=== PATIENT | male | born 1935 | race Asian ===

== ENCOUNTER 2017-05-16 20:01 | Inpatient (IN) | payer MEDICARE, MEDICAID ==
[~2017-05-16] VITALS: Ht 162.6 cm; Wt 80.3 kg
[~2017-05-16 20:01] MED LIST: ASPI81TA43 PO; ATOR10TA84 PO; GLIP10 PO; HYDR-4061 PO; HYDR-4173 PO; HYDR12.530 PO
[2017-05-16] MEDS ORDERED: FURO40 PO (20:11)
[2017-05-16] MEDS ORDERED: SIMV-260 PO (20:11)
[2017-05-16] MEDS ORDERED: BACL10TA PO (20:11)
[2017-05-16] MEDS ORDERED: GABA-529 PO (20:11)
[2017-05-16] MEDS ORDERED: ALLO100T PO (20:11)
[2017-05-16 20:40] LABS: BASOPHILS % (AUTO) 0.5 % (0.0-2.0); EOSINOPHILS % (AUTO) 4.6 % (1.0-6.0); HEMATOCRIT 37.1 % (41-53); HEMOGLOBIN 12.5 g/dL (13.5-17.5); LYMPHOCYTES # (AUTO) 0.9 K/uL (1.0-4.8); LYMPHOCYTES % (AUTO) 12.4 % (22.0-44.0); MEAN CORPUSCULAR HEMOGLOBIN 32.5 pg (26.0-34.0); MEAN CORPUSCULAR HGB CONC 33.7 G/dL (31.0-37.0); MEAN CORPUSCULAR VOLUME 97 fL (80-100); MONOCYTES # (AUTO) 0.9 K/uL (0.1-1.0); MONOCYTES % (AUTO) 11.7 % (2.0-9.0); NEUTROPHILS # (AUTO) 5.2 K/uL (1.8-7.7); NEUTROPHILS % (AUTO) 70.8 % (40.0-70.0); PLATELET COUNT (AUTO) 162 K/uL (150-450); RED BLOOD CELL COUNT(AUTO) 3.84 MIL/uL (4.50-5.90); RED CELL DISTRIBUTION WIDTH 14.5 % (11.5-14.5); WHITE BLOOD COUNT (AUTO) 7.3 K/uL (4.5-11.0)
[2017-05-16 20:52] LABS: ANION GAP 5 mmol/L (8-16); CALCIUM, TOTAL 8.7 mg/dL (8.8-10.5); CARBON DIOXIDE 30 mmol/L (22-29); CHLORIDE 98 mmol/L (98-107); CREATININE 1.85 mg/dL (0.60-1.30); GLOMERULAR FILTR. RATE CALC 35 mL/min (>60); POTASSIUM 3.7 mmol/L (3.5-5.1); SODIUM SERUM 133 mmol/L (136-145); UREA NITROGEN, BLOOD 38 mg/dL (7-18)
[2017-05-16 20:54] LABS: INR 1.1 (0.9-1.1); PROTHROMBIN TIME 11.4 SEC (9.4-11.6)
[2017-05-16 21:16] LABS: B-TYPE NATRIURETIC PEPTIDE 417 pg/mL (0-100)
[2017-05-16 21:17] LABS: ALANINE AMINOTRANSFERASE 10 U/L (12-78); ALBUMIN 3.2 g/dL (3.4-5.0); ASPARTATE AMINOTRANSFERASE 15 U/L (15-37); BILIRUBIN,TOTAL 0.7 mg/dL (0.1-1.0); CREATINE KINASE MB 1.4 ng/mL (0-5); CREATINE KINASE, TOTAL 102 U/L (39-308); TOTAL PROTEIN, SERUM 6.9 g/dL (6.4-8.2)
[2017-05-16] MEDS ORDERED: NITROGLYCERIN 2% (1 GM=INCH) PACKET TP ONE (21:45)
[2017-05-16] MEDS ORDERED: ASPIRIN 81 MG CHEWABLE TABLET PO ONE (21:45)
[2017-05-16] MEDS ORDERED: FUROSEMIDE 40 MG/4 ML VIAL IVP ONE (21:45)
[2017-05-16] MEDS ORDERED: FUROSEMIDE 20 MG/2 ML VIAL IVP ONE (21:45)
[2017-05-16 22:28] LABS: ABG A-A DIFF O2 18.3 mmHg (10-20.0); ABG BASE EXCESS 4.9 mmol/L (-2.0-3.0); ABG HCO3 28.2 mmol/L (22.0-26.0); ABG OXYHEMOGLOBIN 93.2 % (94.0-100.0); ABG PCO2 45 mmHg (35-45); ABG PH 7.427 (7.35-7.450)
[2017-05-16 22:37] LABS: APPEARANCE,URINE CLEAR (CLEAR); GLUCOSE, URINE (UA) 500 mg/dL (NEGATIVE); KETONES,URINE NEGATIVE (NEGATIVE); LEUKOCYTE ESTERASE ,URINE NEGATIVE (NEGATIVE); OCCULT BLOOD,URINE NEGATIVE (NEGATIVE); PH,URINE 5.5 (5.0-8.0); PROTEIN,URINE NEGATIVE (NEGATIVE)
[2017-05-16 22:38] LABS: ADD UA MICROSCOPIC YES
[2017-05-16] MEDS ORDERED: ACETAMINOPHEN 325 MG TABLET PO PRN (22:45)
[2017-05-16] MEDS ORDERED: 0.9% SODIUM CHLORIDE 10 ML SYRINGE IVP PRN (22:45)
[2017-05-16 22:49] LABS: SQUAMOUS EPITHELIAL CELL,UR Rare /LPF (None Seen)
[2017-05-16 22:50] LABS: RBC,URINE None Seen /HPF (0-2); WBC,URINE 0-2 /HPF (0-5)
[2017-05-16 23:58] VITALS: BP 146/63
[2017-05-17] VITALS (9 sets, daily range): BP systolic 112–148; BP diastolic 58–76
[2017-05-17] MEDS ORDERED: 0.9% SODIUM CHLORIDE 10 ML SYRINGE IVP PRN (01:45)
[2017-05-17] MEDS ORDERED: ONDANSETRON HCL 4 MG/2 ML VIAL IVP PRN (01:45)
[2017-05-17] MEDS ORDERED: BACLOFEN 10 MG TABLET PO PRN (01:45)
[2017-05-17] MEDS ORDERED: OxyCODONE HCL/ACETAMINOPHEN 5-325 MG TABLET PO PRN ×2 (01:45)
[2017-05-17] MEDS ORDERED: ACETAMINOPHEN 325 MG TABLET PO PRN (01:45)
[2017-05-17] MEDS ORDERED: MAGNESIUM HYDROXIDE SUSPENSION 30 ML UDCUP PO PRN (01:45)
[2017-05-17 06:25] LABS: BASOPHILS # (AUTO) 0.05 K/uL (0.00-0.20); BASOPHILS % (AUTO) 0.6 % (0.0-2.0); EOSINOPHILS # (AUTO) 0.33 K/uL (0.00-0.70); EOSINOPHILS % (AUTO) 4.27 % (1.0-6.0); HEMATOCRIT 37.8 % (41-53); HEMOGLOBIN 12.8 g/dL (13.5-17.5); LYMPHOCYTES # (AUTO) 1.2 K/uL (1.0-4.8); MEAN CORPUSCULAR HEMOGLOBIN 32.6 pg (26.0-34.0); MEAN CORPUSCULAR HGB CONC 33.8 G/dL (31.0-37.0); MEAN CORPUSCULAR VOLUME 96 fL (80-100); MONOCYTES # (AUTO) 1.1 K/uL (0.1-1.0); MONOCYTES % (AUTO) 13.7 % (2.0-9.0); NEUTROPHILS % (AUTO) 65.4 % (40.0-70.0); PLATELET COUNT (AUTO) 161 K/uL (150-450); RED BLOOD CELL COUNT(AUTO) 3.92 MIL/uL (4.50-5.90); RED CELL DISTRIBUTION WIDTH 14.9 % (11.5-14.5); WHITE BLOOD COUNT (AUTO) 7.6 K/uL (4.5-11.0)
[2017-05-17 06:42] LABS: BILIRUBIN,TOTAL 0.7 mg/dL (0.1-1.0); CREATININE 1.62 mg/dL (0.60-1.30); POTASSIUM 3.4 mmol/L (3.5-5.1); TOTAL PROTEIN, SERUM 6.8 g/dL (6.4-8.2)
[2017-05-17] MEDS ORDERED: LEVALBUTEROL HCL 0.63 MG/3 ML NEB SOLUTION NEB PRN (08:00)
[2017-05-17] MEDS: PANTOPRAZOLE SODIUM 40 MG/VIAL IVP SCH (08:36)
[2017-05-17] MEDS: GABAPENTIN 100 MG CAPSULE PO SCH ×3 (08:36→20:49)
[2017-05-17] MEDS: ASPIRIN 81 MG EC TABLET PO SCH (08:36)
[2017-05-17] MEDS: FUROSEMIDE 40 MG/4 ML VIAL IVP SCH (08:36)
[2017-05-17] MEDS: HydrALAZINE HCL 25 MG TABLET PO SCH ×3 (08:37→20:39)
[2017-05-17] MEDS: ALLOPURINOL 100 MG TABLET PO SCH (08:37)
[2017-05-17] MEDS: DOCUSATE SODIUM 100 MG CAPSULE PO SCH ×2 (08:38→20:41)
[2017-05-17] MEDS: GuaiFENesin/D-METHORPHAN [SUGAR-FREE] 200-20MG/10 ML SYRUP UDCUP PO PRN (09:06)
[2017-05-17] MEDS ORDERED: IPRATROPIUM BROMIDE 0.5 MG/2.5 ML NEB SOLUTION NEB PRN (09:15)
[2017-05-17] MEDS ORDERED: ALBUTEROL SULFATE 2.5 MG/0.5 ML NEB SOLUTION NEB PRN (09:15)
[2017-05-17] MEDS ORDERED: POTASSIUM CHLORIDE 20 MEQ ER TABLET PO ONE (10:00)
[2017-05-17] MEDS ORDERED: DEXTROSE 50%-WATER 25 GM/50 ML SYRINGE IVP PRN (12:45)
[2017-05-17] MEDS: INSULIN ASPART 100 UNITS/ML SQ PRN ×3 (12:52→20:52)
[2017-05-17] MEDS: ALBUTEROL SULFATE 2.5 MG/0.5 ML NEB SOLUTION NEB SCH ×2 (14:04→20:00)
[2017-05-17] MEDS: IPRATROPIUM BROMIDE 0.5 MG/2.5 ML NEB SOLUTION NEB SCH ×2 (14:04→20:00)
[2017-05-17] MEDS: MethylPREDNISolone SOD SUCC 40 MG/ML VIAL IVP SCH (17:43)
[2017-05-17] MEDS: OXYGEN THERAPY IH SCH (20:00)
[2017-05-17] MEDS ORDERED: SIMVASTATIN 20 MG TABLET PO SCH (21:00)
[2017-05-18] MEDS: MethylPREDNISolone SOD SUCC 40 MG/ML VIAL IVP SCH ×3 (00:58→17:05)
[2017-05-18 01:02] LABS: GLUCOSE COMMENT 1 Received Meds; GLUCOSE,POINT OF CARE 170 MG/DL (70-110)
[2017-05-18] MEDS: GuaiFENesin/D-METHORPHAN [SUGAR-FREE] 200-20MG/10 ML SYRUP UDCUP PO PRN (01:06)
[2017-05-18 01:07] LABS: GLUCOSE COMMENT 1 Received Meds; GLUCOSE,POINT OF CARE 228 MG/DL (70-110)
[2017-05-18 04:46] VITALS: BP 151/79
[2017-05-18] MEDS: INSULIN ASPART 100 UNITS/ML SQ PRN ×3 (06:14→18:05)
[2017-05-18 06:38] LABS: BASOPHILS % (AUTO) 0.1 % (0.0-2.0); EOSINOPHILS % (AUTO) 0 % (1.0-6.0); HEMATOCRIT 41.6 % (41-53); HEMOGLOBIN 13.9 g/dL (13.5-17.5); MEAN CORPUSCULAR HEMOGLOBIN 32.6 pg (26.0-34.0); MEAN CORPUSCULAR HGB CONC 33.5 G/dL (31.0-37.0); MEAN CORPUSCULAR VOLUME 97 fL (80-100); MONOCYTES # (AUTO) 0.1 K/uL (0.1-1.0); MONOCYTES % (AUTO) 1.2 % (2.0-9.0); NEUTROPHILS # (AUTO) 5.9 K/uL (1.8-7.7); NEUTROPHILS % (AUTO) 84.7 % (40.0-70.0); PLATELET COUNT (AUTO) 193 K/uL (150-450); RED BLOOD CELL COUNT(AUTO) 4.28 MIL/uL (4.50-5.90); RED CELL DISTRIBUTION WIDTH 14.7 % (11.5-14.5); WHITE BLOOD COUNT (AUTO) 6.9 K/uL (4.5-11.0)
[2017-05-18 07:30] LABS: BILIRUBIN,TOTAL 0.6 mg/dL (0.1-1.0); CALCIUM, TOTAL 9.2 mg/dL (8.8-10.5); CREATININE 1.73 mg/dL (0.60-1.30); MAGNESIUM 1.9 mg/dL (1.80-2.40); POTASSIUM 4.1 mmol/L (3.5-5.1); TOTAL PROTEIN, SERUM 7.4 g/dL (6.4-8.2)
[2017-05-18 07:33] LABS: GLUCOSE COMMENT 1 Received Meds; GLUCOSE,POINT OF CARE 223 MG/DL (70-110)
[2017-05-18] MEDS: IPRATROPIUM BROMIDE 0.5 MG/2.5 ML NEB SOLUTION NEB SCH ×3 (08:00→14:00)
[2017-05-18] MEDS: ALBUTEROL SULFATE 2.5 MG/0.5 ML NEB SOLUTION NEB SCH ×3 (08:00→14:00)
[2017-05-18] MEDS: OXYGEN THERAPY IH SCH (08:00)
[2017-05-18] MEDS: FUROSEMIDE 40 MG/4 ML VIAL IVP SCH (08:13)
[2017-05-18] MEDS: PANTOPRAZOLE SODIUM 40 MG/VIAL IVP SCH (08:13)
[2017-05-18] MEDS: DOCUSATE SODIUM 100 MG CAPSULE PO SCH (08:13)
[2017-05-18] MEDS: GABAPENTIN 100 MG CAPSULE PO SCH ×2 (08:14→17:05)
[2017-05-18] MEDS: HydrALAZINE HCL 25 MG TABLET PO SCH (08:14)
[2017-05-18] MEDS: ASPIRIN 81 MG EC TABLET PO SCH (08:14)
[2017-05-18] MEDS: ALLOPURINOL 100 MG TABLET PO SCH (08:16)
[2017-05-18 08:46] VITALS: BP 133/71
[2017-05-18 11:25] VITALS: BP 146/73
[2017-05-18] MEDS ORDERED: HydrALAZINE HCL 50 MG TABLET PO SCH (16:00)
[2017-05-18 16:06] VITALS: BP 125/65
[2017-05-18] MEDS ORDERED: HYDR-2924 PO (16:17)
[2017-05-19 05:08] LABS: GLUCOSE COMMENT 1 Received Meds; GLUCOSE,POINT OF CARE 327 MG/DL (70-110)
[2017-05-19 05:18] LABS: GLUCOSE COMMENT 1 Received Meds; GLUCOSE,POINT OF CARE 265 MG/DL (70-110)
[2017-05-19 05:19] LABS: GLUCOSE COMMENT 1 Received Meds; GLUCOSE,POINT OF CARE 278 MG/DL (70-110)
[2017-05-19] MEDS ORDERED: FUROSEMIDE 40 MG TABLET PO SCH (09:00)
== END 2017-05-18 18:20 | disposition home or self-care (01) | DRG 291 ==
LOC: EMS 20:02 → 5S 22:37
PROVIDERS: ADMIT Internal Medicine; ATTEND Internal Medicine
DX: I13.0 Hypertensive heart and chronic kidney disease with heart failure and stage 1 through stage 4 chronic kidney disease, or unspecified chronic kidney disease (principal); E43 Unspecified severe protein-calorie malnutrition; N17.9 Acute kidney failure, unspecified; E11.21 Type 2 diabetes mellitus with diabetic nephropathy; I49.5 Sick sinus syndrome; E11.22 Type 2 diabetes mellitus with diabetic chronic kidney disease; I50.31 Acute diastolic (congestive) heart failure; E87.1 Hypo-osmolality and hyponatremia; J44.1 Chronic obstructive pulmonary disease with (acute) exacerbation; N18.3 Chronic kidney disease, stage 3 (moderate); E55.9 Vitamin D deficiency, unspecified; E78.00 Pure hypercholesterolemia, unspecified; E78.5 Hyperlipidemia, unspecified; E87.6 Hypokalemia; M10.9 Gout, unspecified; Z83.3 Family history of diabetes mellitus; Z90.49 Acquired absence of other specified parts of digestive tract; Z82.49 Family history of ischemic heart disease and other diseases of the circulatory system; Z68.30 Body mass index [BMI] 30.0-30.9, adult; Z79.82 Long term (current) use of aspirin; Z79.899 Other long term (current) drug therapy
CPT/HCPCS: 82805; 82962; 83605; 83735; 84132; 87040; 93005; 93306; 96374; 99285; C9113; J1940; J2920

== ENCOUNTER 2017-05-28 19:32 | Emergency (ER) | payer MEDICARE, MEDICAID ==
[~2017-05-28] VITALS: Ht 162.6 cm; Wt 83.5 kg
[~2017-05-28 19:32] MED LIST changes: +ALLO100T PO; -ATOR10TA84 PO; +BACL10TA PO; +FURO40 PO; +GABA-529 PO; +HYDR-2924 PO; -HYDR-4061 PO; -HYDR-4173 PO; -HYDR12.530 PO; +SIMV-260 PO
[2017-05-28 20:48] LABS: BASOPHILS # (AUTO) 0.04 K/uL (0.00-0.20); BASOPHILS % (AUTO) 0.4 % (0.0-2.0); EOSINOPHILS # (AUTO) 0.37 K/uL (0.00-0.70); EOSINOPHILS % (AUTO) 3.71 % (1.0-6.0); HEMATOCRIT 39.5 % (41-53); HEMOGLOBIN 13.2 g/dL (13.5-17.5); LYMPHOCYTES # (AUTO) 1.3 K/uL (1.0-4.8); LYMPHOCYTES % (AUTO) 13.2 % (22.0-44.0); MEAN CORPUSCULAR HEMOGLOBIN 32.3 pg (26.0-34.0); MEAN CORPUSCULAR HGB CONC 33.3 G/dL (31.0-37.0); MEAN CORPUSCULAR VOLUME 97 fL (80-100); MONOCYTES # (AUTO) 0.7 K/uL (0.1-1.0); NEUTROPHILS # (AUTO) 7.5 K/uL (1.8-7.7); NEUTROPHILS % (AUTO) 75.7 % (40.0-70.0); PLATELET COUNT (AUTO) 220 K/uL (150-450); RED BLOOD CELL COUNT(AUTO) 4.08 MIL/uL (4.50-5.90); RED CELL DISTRIBUTION WIDTH 14.5 % (11.5-14.5); WHITE BLOOD COUNT (AUTO) 9.9 K/uL (4.5-11.0)
[2017-05-28 21:00] LABS: INR 1.1 (0.9-1.1); PROTHROMBIN TIME 11.1 SEC (9.4-11.6)
[2017-05-28 21:05] LABS: B-TYPE NATRIURETIC PEPTIDE 167 pg/mL (0-100)
[2017-05-28 21:11] LABS: ANION GAP 4 mmol/L (8-16); CALCIUM, TOTAL 8.8 mg/dL (8.8-10.5); CARBON DIOXIDE 34 mmol/L (22-29); CHLORIDE 95 mmol/L (98-107); CREATININE 2.07 mg/dL (0.60-1.30); GLOMERULAR FILTR. RATE CALC 31 mL/min (>60); POTASSIUM 4.1 mmol/L (3.5-5.1); SODIUM SERUM 133 mmol/L (136-145); UREA NITROGEN, BLOOD 58 mg/dL (7-18)
[2017-05-28 21:12] LABS: ADD UA MICROSCOPIC YES; APPEARANCE,URINE CLEAR (CLEAR); GLUCOSE, URINE (UA) 250 mg/dL (NEGATIVE); KETONES,URINE NEGATIVE (NEGATIVE); LEUKOCYTE ESTERASE ,URINE NEGATIVE (NEGATIVE); OCCULT BLOOD,URINE NEGATIVE (NEGATIVE); PROTEIN,URINE NEGATIVE (NEGATIVE)
[2017-05-28 21:18] LABS: ALANINE AMINOTRANSFERASE 12 U/L (12-78); ALBUMIN 3.1 g/dL (3.4-5.0); ASPARTATE AMINOTRANSFERASE 18 U/L (15-37); BILIRUBIN,TOTAL 0.4 mg/dL (0.1-1.0); CREATINE KINASE, TOTAL 60 U/L (39-308); TOTAL PROTEIN, SERUM 6.6 g/dL (6.4-8.2)
[2017-05-28 21:21] LABS: RBC,URINE None Seen /HPF (0-2); WBC,URINE 0-2 /HPF (0-5)
[2017-05-28 22:56] VITALS: BP 149/65
[2017-05-28] MEDS ORDERED: FentaNYL CITRATE-PF 100 MCG/2 ML VIAL IVP ONE (23:15)
[2017-05-29 09:05] LABS: GLUCOSE,POINT OF CARE 243 MG/DL (70-110)
== END 2017-05-28 23:37 | disposition home or self-care (01) ==
LOC: EMS 19:33
DX: R51 Headache (principal); I11.0 Hypertensive heart disease with heart failure; I50.9 Heart failure, unspecified; E78.00 Pure hypercholesterolemia, unspecified; E11.9 Type 2 diabetes mellitus without complications
CPT/HCPCS: 36415; 70450; 71010; 80053; 81001; 82550; 82962; 83880; 84484; 85025; 85610; 85730; 93005; 96374; 99285; J3010

== ENCOUNTER 2017-08-02 01:49 | Inpatient (IN) | payer MEDICARE, MEDICAID ==
[2017-08-02] VITALS (7 sets, daily range): BP systolic 108–144; BP diastolic 51–80
[~2017-08-02] VITALS: Ht 165.1 cm; Wt 82.9 kg
[2017-08-02 02:02] LABS: GLUCOSE,POINT OF CARE 191 MG/DL (70-110)
[2017-08-02 02:41] LABS: BASOPHILS % (AUTO) 1.3 % (0.0-2.0); EOSINOPHILS % (AUTO) 3.9 % (1.0-6.0); HEMOGLOBIN 12.7 g/dL (13.5-17.5); LYMPHOCYTES % (AUTO) 16.6 % (22.0-44.0); MEAN CORPUSCULAR HEMOGLOBIN 32.3 pg (26.0-34.0); MEAN CORPUSCULAR HGB CONC 33.4 G/dL (31.0-37.0); MEAN CORPUSCULAR VOLUME 97 fL (80-100); MONOCYTES # (AUTO) 0.5 K/uL (0.1-1.0); MONOCYTES % (AUTO) 7.7 % (2.0-9.0); NEUTROPHILS # (AUTO) 4.5 K/uL (1.8-7.7); NEUTROPHILS % (AUTO) 70.5 % (40.0-70.0); PLATELET COUNT (AUTO) 175 K/uL (150-450); RED BLOOD CELL COUNT(AUTO) 3.93 MIL/uL (4.50-5.90); RED CELL DISTRIBUTION WIDTH 15.4 % (11.5-14.5); WHITE BLOOD COUNT (AUTO) 6.3 K/uL (4.5-11.0)
[2017-08-02 03:30] LABS: CREATININE 1.81 mg/dL (0.60-1.30); POTASSIUM 4.8 mmol/L (3.5-5.1)
[2017-08-02 03:36] LABS: ALBUMIN 3.4 g/dL (3.4-5.0); BILIRUBIN,TOTAL 0.6 mg/dL (0.1-1.0); TOTAL PROTEIN, SERUM 6.3 g/dL (6.4-8.2)
[2017-08-02] MEDS ORDERED: ONDANSETRON HCL 4 MG/2 ML VIAL IVP PRN (04:15)
[2017-08-02] MEDS ORDERED: ACETAMINOPHEN 325 MG TABLET PO PRN (04:15)
[2017-08-02] MEDS ORDERED: FUROSEMIDE 40 MG/4 ML VIAL IVP ONE (04:15)
[2017-08-02] MEDS ORDERED: 0.9% SODIUM CHLORIDE 10 ML SYRINGE IVP PRN (04:15)
[2017-08-02] MEDS ORDERED: INFLUENZA VIRUS VACCINE QVS 2017-18 (3YR+)/PF 60 MCG/0.5 ML SYRINGE IM ONE (06:30)
[2017-08-02] MEDS ORDERED: -PHARMACY VACCINE NOTE- MISC ONE ×2 (06:30)
[2017-08-02] MEDS ORDERED: MAGNESIUM OXIDE 400 MG TABLET PO PRN (17:15)
[2017-08-02] MEDS ORDERED: MAGNESIUM SULFATE 4 GM/WATER 100 ML IV PRN (17:15)
[2017-08-02] MEDS ORDERED: MAGNESIUM SULFATE 2 GM in DEXTROSE 5%-WATER 50 ML IV PRN (17:15)
[2017-08-02] MEDS ORDERED: BACLOFEN 10 MG TABLET PO PRN (17:30)
[2017-08-02] MEDS ORDERED: DEXTROSE 50%-WATER 25 GM/50 ML SYRINGE IVP PRN (17:30)
[2017-08-02] MEDS: FUROSEMIDE 20 MG/2 ML VIAL IVP SCH (17:46)
[2017-08-02] MEDS: INSULIN ASPART 100 UNITS/ML SQ PRN (17:59)
[2017-08-02] MEDS: GlipiZIDE 10 MG TABLET PO SCH (18:36)
[2017-08-02] MEDS: HydrALAZINE HCL 50 MG TABLET PO SCH (20:57)
[2017-08-02] MEDS: SIMVASTATIN 20 MG TABLET PO SCH (20:57)
[2017-08-03] VITALS (7 sets, daily range): BP systolic 99–139; BP diastolic 44–72
[2017-08-03] MEDS: INSULIN ASPART 100 UNITS/ML SQ PRN ×4 (05:47→20:51)
[2017-08-03] MEDS: FUROSEMIDE 20 MG/2 ML VIAL IVP SCH ×2 (05:50→20:23)
[2017-08-03 05:57] LABS: BASOPHILS % (AUTO) 1.2 % (0.0-2.0); EOSINOPHILS % (AUTO) 1.9 % (1.0-6.0); HEMATOCRIT 38.9 % (41-53); HEMOGLOBIN 13.1 g/dL (13.5-17.5); LYMPHOCYTES # (AUTO) 1.1 K/uL (1.0-4.8); MEAN CORPUSCULAR HEMOGLOBIN 32.5 pg (26.0-34.0); MEAN CORPUSCULAR HGB CONC 33.8 G/dL (31.0-37.0); MEAN CORPUSCULAR VOLUME 96 fL (80-100); MONOCYTES # (AUTO) 0.5 K/uL (0.1-1.0); MONOCYTES % (AUTO) 5.5 % (2.0-9.0); NEUTROPHILS # (AUTO) 7.2 K/uL (1.8-7.7); NEUTROPHILS % (AUTO) 79.4 % (40.0-70.0); PLATELET COUNT (AUTO) 195 K/uL (150-450); RED BLOOD CELL COUNT(AUTO) 4.03 MIL/uL (4.50-5.90); RED CELL DISTRIBUTION WIDTH 15.7 % (11.5-14.5); WHITE BLOOD COUNT (AUTO) 9.1 K/uL (4.5-11.0)
[2017-08-03 06:22] LABS: ALBUMIN 3.2 g/dL (3.4-5.0); BILIRUBIN,TOTAL 0.5 mg/dL (0.1-1.0); CREATININE 1.78 mg/dL (0.60-1.30); MAGNESIUM 2.1 mg/dL (1.80-2.40); POTASSIUM 4.3 mmol/L (3.5-5.1); TOTAL PROTEIN, SERUM 6.3 g/dL (6.4-8.2)
[2017-08-03] MEDS: GlipiZIDE 10 MG TABLET PO SCH ×2 (06:30→17:49)
[2017-08-03] MEDS: ALLOPURINOL 100 MG TABLET PO SCH (08:32)
[2017-08-03] MEDS: ASPIRIN 81 MG EC TABLET PO SCH (08:32)
[2017-08-03] MEDS: HydrALAZINE HCL 50 MG TABLET PO SCH ×2 (08:32→15:49)
[2017-08-03 09:37] LABS: GLUCOSE,POINT OF CARE 103 MG/DL (70-110)
[2017-08-03] MEDS: HEPARIN SODIUM,PORCINE 5,000 UNITS/ML VIAL SQ SCH (16:00)
[2017-08-03] MEDS ORDERED: INFLUENZA VIRUS VACCINE QVS 2017-18 (3YR+)/PF 60 MCG/0.5 ML SYRINGE IM ONE (19:30)
[2017-08-03] MEDS: SIMVASTATIN 20 MG TABLET PO SCH (20:23)
[2017-08-04] MEDS: HydrALAZINE HCL 50 MG TABLET PO SCH ×4 (00:31→21:27)
[2017-08-04] MEDS: HEPARIN SODIUM,PORCINE 5,000 UNITS/ML VIAL SQ SCH ×3 (00:32→15:55)
[2017-08-04] MEDS ORDERED: FINA5TAB41 PO (01:05)
[2017-08-04 04:27] VITALS: BP 128/71
[2017-08-04] MEDS ORDERED: CARV25 PO (04:56)
[2017-08-04] MEDS ORDERED: PIOG45TA4 PO (04:58)
[2017-08-04] MEDS ORDERED: HYDR25TA84 PO (04:59)
[2017-08-04] MEDS: INSULIN ASPART 100 UNITS/ML SQ PRN ×3 (05:53→18:19)
[2017-08-04] MEDS ORDERED: SIMV-260 PO (05:55)
[2017-08-04] MEDS: GlipiZIDE 10 MG TABLET PO SCH ×3 (06:30→18:17)
[2017-08-04 06:31] LABS: BASOPHILS # (AUTO) 0.02 K/uL (0.00-0.20); BASOPHILS % (AUTO) 0.2 % (0.0-2.0); EOSINOPHILS # (AUTO) 0.34 K/uL (0.00-0.70); EOSINOPHILS % (AUTO) 4.36 % (1.0-6.0); HEMATOCRIT 40.3 % (41-53); LYMPHOCYTES # (AUTO) 0.6 K/uL (1.0-4.8); LYMPHOCYTES % (AUTO) 8.1 % (22.0-44.0); MEAN CORPUSCULAR HEMOGLOBIN 31.6 pg (26.0-34.0); MEAN CORPUSCULAR HGB CONC 32.3 G/dL (31.0-37.0); MEAN CORPUSCULAR VOLUME 98 fL (80-100); MONOCYTES # (AUTO) 0.5 K/uL (0.1-1.0); MONOCYTES % (AUTO) 6.9 % (2.0-9.0); NEUTROPHILS # (AUTO) 6.2 K/uL (1.8-7.7); NEUTROPHILS % (AUTO) 80.5 % (40.0-70.0); PLATELET COUNT (AUTO) 158 K/uL (150-450); RED BLOOD CELL COUNT(AUTO) 4.11 MIL/uL (4.50-5.90); RED CELL DISTRIBUTION WIDTH 15.6 % (11.5-14.5); WHITE BLOOD COUNT (AUTO) 7.7 K/uL (4.5-11.0)
[2017-08-04 06:54] LABS: HEMOGLOBIN A1C 8.4 % (4.5-6.2)
[2017-08-04 06:58] LABS: CALCIUM, TOTAL 9.1 mg/dL (8.8-10.5); CHOL/HDL RATIO 2.8 (4.2-7.3); CREATININE 1.85 mg/dL (0.60-1.30); POTASSIUM 3.7 mmol/L (3.5-5.1)
[2017-08-04 07:22] VITALS: BP 133/90
[2017-08-04] MEDS: ALLOPURINOL 100 MG TABLET PO SCH (08:28)
[2017-08-04] MEDS: ASPIRIN 81 MG EC TABLET PO SCH (08:28)
[2017-08-04] MEDS: FUROSEMIDE 20 MG/2 ML VIAL IVP SCH (08:28)
[2017-08-04] MEDS: PANTOPRAZOLE SODIUM 40 MG DR TABLET PO SCH (08:28)
[2017-08-04 11:24] VITALS: BP 140/62
[2017-08-04 15:25] VITALS: BP 123/53
[2017-08-04 16:58] LABS: GLUCOSE COMMENT 1 Received Meds; GLUCOSE,POINT OF CARE 229 MG/DL (70-110)
[2017-08-04 17:35] LABS: ABG A-A DIFF O2 6.9 mmHg (10-20.0); ABG BASE EXCESS 9.7 mmol/L (-2.0-3.0); ABG OXYHEMOGLOBIN 94.2 % (94.0-100.0); ABG PCO2 51 mmHg (35-45); ABG PH 7.442 (7.35-7.450); TEMPERATURE, FAHRENHEIT, BG 98.6 FAHREN (96.0-98.6)
[2017-08-04 17:36] LABS: ALLEN TEST, BLOOD GAS Positive
[2017-08-04 19:49] VITALS: BP 149/72
[2017-08-04] MEDS: SIMVASTATIN 20 MG TABLET PO SCH (20:49)
[2017-08-04] MEDS: TAMSULOSIN HCL 0.4 MG CAPSULE PO SCH (20:49)
[2017-08-04 22:48] LABS: GLUCOSE COMMENT 1 Received Meds; GLUCOSE,POINT OF CARE 174 MG/DL (70-110)
[2017-08-04 22:48] LABS: GLUCOSE,POINT OF CARE 112 MG/DL (70-110)
[2017-08-04 22:48] LABS: GLUCOSE,POINT OF CARE 111 MG/DL (70-110)
[2017-08-05] VITALS (7 sets, daily range): BP systolic 120–146; BP diastolic 55–76
[2017-08-05] MEDS: HEPARIN SODIUM,PORCINE 5,000 UNITS/ML VIAL SQ SCH ×3 (00:09→16:38)
[2017-08-05 05:47] LABS: GLUCOSE,POINT OF CARE 145 MG/DL (70-110)
[2017-08-05 05:47] LABS: GLUCOSE COMMENT 1 Received Meds; GLUCOSE,POINT OF CARE 67 MG/DL (70-110)
[2017-08-05 05:48] LABS: GLUCOSE,POINT OF CARE 108 MG/DL (70-110)
[2017-08-05 05:52] LABS: GLUCOSE COMMENT 1 Received Meds; GLUCOSE,POINT OF CARE 217 MG/DL (70-110)
[2017-08-05 05:52] LABS: GLUCOSE COMMENT 1 Received Meds; GLUCOSE,POINT OF CARE 233 MG/DL (70-110)
[2017-08-05] MEDS: GlipiZIDE 10 MG TABLET PO SCH ×2 (06:18→17:37)
[2017-08-05] MEDS: HydrALAZINE HCL 50 MG TABLET PO SCH ×3 (08:05→20:39)
[2017-08-05] MEDS: ASPIRIN 81 MG EC TABLET PO SCH (08:05)
[2017-08-05] MEDS: ALLOPURINOL 100 MG TABLET PO SCH (08:05)
[2017-08-05] MEDS: PANTOPRAZOLE SODIUM 40 MG DR TABLET PO SCH (08:05)
[2017-08-05] MEDS: INSULIN ASPART 100 UNITS/ML SQ PRN ×2 (12:01→22:01)
[2017-08-05 17:23] LABS: GLUCOSE COMMENT 1 Received Meds; GLUCOSE,POINT OF CARE 246 MG/DL (70-110)
[2017-08-05] MEDS: SIMVASTATIN 20 MG TABLET PO SCH (20:39)
[2017-08-05] MEDS: TAMSULOSIN HCL 0.4 MG CAPSULE PO SCH (20:39)
[2017-08-06] MEDS: HEPARIN SODIUM,PORCINE 5,000 UNITS/ML VIAL SQ SCH ×3 (00:10→16:42)
[2017-08-06 04:34] VITALS: BP 139/58
[2017-08-06] MEDS: GlipiZIDE 10 MG TABLET PO SCH ×2 (06:41→17:30)
[2017-08-06 07:07] VITALS: BP 139/76
[2017-08-06] MEDS: HydrALAZINE HCL 50 MG TABLET PO SCH ×3 (08:34→20:30)
[2017-08-06] MEDS: PANTOPRAZOLE SODIUM 40 MG DR TABLET PO SCH (08:34)
[2017-08-06] MEDS: ALLOPURINOL 100 MG TABLET PO SCH (08:34)
[2017-08-06] MEDS: ASPIRIN 81 MG EC TABLET PO SCH (08:34)
[2017-08-06 11:00] VITALS: BP 123/70
[2017-08-06 15:25] VITALS: BP 143/94
[2017-08-06 18:07] LABS: GLUCOSE COMMENT 1 Received Meds; GLUCOSE,POINT OF CARE 281 MG/DL (70-110)
[2017-08-06 18:07] LABS: GLUCOSE,POINT OF CARE 101 MG/DL (70-110)
[2017-08-06 18:08] LABS: GLUCOSE,POINT OF CARE 81 MG/DL (70-110)
[2017-08-06 19:15] VITALS: BP 132/64
[2017-08-06] MEDS: TAMSULOSIN HCL 0.4 MG CAPSULE PO SCH (20:30)
[2017-08-06] MEDS: SIMVASTATIN 20 MG TABLET PO SCH (20:30)
[2017-08-06] MEDS: INSULIN ASPART 100 UNITS/ML SQ PRN (20:31)
[2017-08-06 21:47] LABS: GLUCOSE,POINT OF CARE 173 MG/DL (70-110)
[2017-08-06 23:47] VITALS: BP 128/69
[2017-08-07] MEDS: HEPARIN SODIUM,PORCINE 5,000 UNITS/ML VIAL SQ SCH ×2 (01:35→09:07)
[2017-08-07 04:25] VITALS: BP 138/64
[2017-08-07 05:52] LABS: GLUCOSE COMMENT 1 Received Meds; GLUCOSE,POINT OF CARE 179 MG/DL (70-110)
[2017-08-07] MEDS: GlipiZIDE 10 MG TABLET PO SCH (06:09)
[2017-08-07 07:32] LABS: GLUCOSE COMMENT 1 Received Meds; GLUCOSE,POINT OF CARE 165 MG/DL (70-110)
[2017-08-07 07:33] LABS: GLUCOSE COMMENT 1 Received Meds; GLUCOSE,POINT OF CARE 238 MG/DL (70-110)
[2017-08-07 07:33] LABS: GLUCOSE,POINT OF CARE 138 MG/DL (70-110)
[2017-08-07 07:40] VITALS: BP 152/74
[2017-08-07] MEDS: ALLOPURINOL 100 MG TABLET PO SCH (09:06)
[2017-08-07] MEDS: HydrALAZINE HCL 50 MG TABLET PO SCH ×2 (09:06→16:35)
[2017-08-07] MEDS: ASPIRIN 81 MG EC TABLET PO SCH (09:06)
[2017-08-07] MEDS: PANTOPRAZOLE SODIUM 40 MG DR TABLET PO SCH (09:06)
[2017-08-07 09:37] LABS: GLUCOSE,POINT OF CARE 105 MG/DL (70-110)
[2017-08-07 11:30] VITALS: BP 132/67
[2017-08-07] MEDS: INSULIN ASPART 100 UNITS/ML SQ PRN (11:41)
[2017-08-07 15:27] VITALS: BP 152/90
[2017-08-08 11:59] LABS: GLUCOSE,POINT OF CARE 113 MG/DL (70-110)
[2017-08-08 20:42] LABS: GLUCOSE,POINT OF CARE 147 MG/DL (70-110)
== END 2017-08-07 17:00 | disposition home or self-care (01) | DRG 291 ==
LOC: EMS 01:50 → 5S 04:34
PROVIDERS: ADMIT Internal Medicine; ATTEND Internal Medicine
DX: I13.0 Hypertensive heart and chronic kidney disease with heart failure and stage 1 through stage 4 chronic kidney disease, or unspecified chronic kidney disease (principal); I50.23 Acute on chronic systolic (congestive) heart failure; N17.9 Acute kidney failure, unspecified; E11.22 Type 2 diabetes mellitus with diabetic chronic kidney disease; G20 Parkinson's disease; I48.91 Unspecified atrial fibrillation; E78.5 Hyperlipidemia, unspecified; F03.90 Unspecified dementia, unspecified severity, without behavioral disturbance, psychotic disturbance, mood disturbance, and anxiety; M10.9 Gout, unspecified; N18.3 Chronic kidney disease, stage 3 (moderate); N40.0 Benign prostatic hyperplasia without lower urinary tract symptoms; Z90.49 Acquired absence of other specified parts of digestive tract; Z82.49 Family history of ischemic heart disease and other diseases of the circulatory system; Z79.82 Long term (current) use of aspirin; Z79.899 Other long term (current) drug therapy; Z28.21 Immunization not carried out because of patient refusal
CPT/HCPCS: 82805; 82962; 83036; 83735; 93005; 93306; 97110; 97116; 97162; 97165; 99285; J1644; J1940

== ENCOUNTER 2017-09-03 15:29 | Inpatient (IN) | payer MEDICARE, MEDICAID ==
[~2017-09-03] VITALS: Ht 162.6 cm; Wt 82.4 kg
[~2017-09-03 15:29] MED LIST changes: -BACL10TA PO; +CARV25 PO; +FINA5TAB41 PO; -GABA-529 PO; -GLIP10 PO; -HYDR-2924 PO; +HYDR25TA84 PO; +PIOG45TA4 PO
[2017-09-03 16:32] LABS: GLUCOSE,POINT OF CARE 202 MG/DL (70-110)
[2017-09-03 19:05] LABS: BASOPHILS # (AUTO) 0.03 K/uL (0.00-0.20); BASOPHILS % (AUTO) 0.5 % (0.0-2.0); EOSINOPHILS # (AUTO) 0.14 K/uL (0.00-0.70); HEMATOCRIT 41.5 % (41-53); LYMPHOCYTES # (AUTO) 0.8 K/uL (1.0-4.8); LYMPHOCYTES % (AUTO) 15.1 % (22.0-44.0); MEAN CORPUSCULAR HEMOGLOBIN 32.2 pg (26.0-34.0); MEAN CORPUSCULAR HGB CONC 33.7 G/dL (31.0-37.0); MEAN CORPUSCULAR VOLUME 96 fL (80-100); MONOCYTES # (AUTO) 0.4 K/uL (0.1-1.0); MONOCYTES % (AUTO) 7.5 % (2.0-9.0); NEUTROPHILS # (AUTO) 4.1 K/uL (1.8-7.7); NEUTROPHILS % (AUTO) 74.5 % (40.0-70.0); PLATELET COUNT (AUTO) 181 K/uL (150-450); RED BLOOD CELL COUNT(AUTO) 4.35 MIL/uL (4.50-5.90); RED CELL DISTRIBUTION WIDTH 15.5 % (11.5-14.5)
[2017-09-03 19:29] LABS: ALBUMIN 3.7 g/dL (3.4-5.0); BILIRUBIN,TOTAL 0.8 mg/dL (0.1-1.0); CALCIUM, TOTAL 8.8 mg/dL (8.8-10.5); CREATININE 1.55 mg/dL (0.60-1.30); POTASSIUM 4.1 mmol/L (3.5-5.1); TOTAL PROTEIN, SERUM 7.1 g/dL (6.4-8.2)
[2017-09-03] MEDS ORDERED: FUROSEMIDE 40 MG/4 ML VIAL IVP ONE (20:00)
[2017-09-03] MEDS ORDERED: NITROGLYCERIN 2% (1 GM=INCH) PACKET TP ONE (20:00)
[2017-09-03] MEDS ORDERED: ASPIRIN 81 MG CHEWABLE TABLET PO ONE (20:00)
[2017-09-03] MEDS ORDERED: ACETAMINOPHEN 325 MG TABLET PO PRN (21:00)
[2017-09-03] MEDS ORDERED: 0.9% SODIUM CHLORIDE 10 ML SYRINGE IVP PRN (21:00)
[2017-09-03] MEDS ORDERED: DEXTROSE 50%-WATER 25 GM/50 ML SYRINGE IVP PRN (21:00)
[2017-09-03] MEDS ORDERED: INSULIN ASPART 100 UNITS/ML SQ PRN (21:00)
[2017-09-03 21:52] LABS: APPEARANCE,URINE CLEAR (CLEAR); BILIRUBIN,URINE NEGATIVE (NEGATIVE); GLUCOSE, URINE (UA) 250 mg/dL (NEGATIVE); KETONES,URINE NEGATIVE (NEGATIVE); LEUKOCYTE ESTERASE ,URINE NEGATIVE (NEGATIVE); NITRATE,URINE NEGATIVE (NEGATIVE); OCCULT BLOOD,URINE NEGATIVE (NEGATIVE); PROTEIN,URINE NEGATIVE (NEGATIVE); UROBILINOGEN,URINE 0.2 mg/dL (<=1.0)
[2017-09-03 22:07] LABS: BACTERIA,URINE None Seen /HPF (None Seen); RBC,URINE None Seen /HPF (0-2); SQUAMOUS EPITHELIAL CELL,UR Few /LPF (None Seen); WBC,URINE 0-2 /HPF (0-5)
[2017-09-04] MEDS: IPRATROPIUM BROMIDE 0.5 MG/2.5 ML NEB SOLUTION NEB SCH ×2 (01:50→08:21)
[2017-09-04] MEDS: ALBUTEROL SULFATE 2.5 MG/0.5 ML NEB SOLUTION NEB SCH ×2 (01:50→08:21)
[2017-09-04 07:48] LABS: GLUCOSE,POINT OF CARE 154 MG/DL (70-110)
[2017-09-04 07:49] LABS: BASOPHILS % (AUTO) 1.3 % (0.0-2.0); EOSINOPHILS % (AUTO) 3.9 % (1.0-6.0); HEMATOCRIT 43.2 % (41-53); HEMOGLOBIN 14.4 g/dL (13.5-17.5); LYMPHOCYTES % (AUTO) 15.8 % (22.0-44.0); MEAN CORPUSCULAR HEMOGLOBIN 32.4 pg (26.0-34.0); MEAN CORPUSCULAR HGB CONC 33.4 G/dL (31.0-37.0); MEAN CORPUSCULAR VOLUME 97 fL (80-100); MONOCYTES # (AUTO) 0.9 K/uL (0.1-1.0); MONOCYTES % (AUTO) 14.2 % (2.0-9.0); NEUTROPHILS # (AUTO) 4.1 K/uL (1.8-7.7); NEUTROPHILS % (AUTO) 64.8 % (40.0-70.0); PLATELET COUNT (AUTO) 179 K/uL (150-450); RED BLOOD CELL COUNT(AUTO) 4.45 MIL/uL (4.50-5.90); RED CELL DISTRIBUTION WIDTH 15.7 % (11.5-14.5)
[2017-09-04 08:04] LABS: ALBUMIN 3.4 g/dL (3.4-5.0); BILIRUBIN,TOTAL 0.6 mg/dL (0.1-1.0); CALCIUM, TOTAL 8.8 mg/dL (8.8-10.5); CREATININE 1.41 mg/dL (0.60-1.30); POTASSIUM 3.8 mmol/L (3.5-5.1); TOTAL PROTEIN, SERUM 6.5 g/dL (6.4-8.2)
[2017-09-04 08:17] LABS: INR 1.1 (0.9-1.1); PROTHROMBIN TIME 11.4 SEC (9.4-11.6)
[2017-09-04 08:42] VITALS: BP 146/87
[2017-09-04] MEDS ORDERED: INFLUENZA VIRUS VACCINE QVS 2017-18 (3YR+)/PF 60 MCG/0.5 ML SYRINGE IM ONE (10:30)
[2017-09-04] MEDS: ASPIRIN 81 MG EC TABLET PO SCH (11:04)
[2017-09-04] MEDS: FINASTERIDE 5 MG TABLET PO SCH (11:04)
[2017-09-04 11:19] VITALS: BP 155/90
[2017-09-04] MEDS: PIOGLITAZONE HCL 45 MG TABLET PO SCH (12:16)
[2017-09-04 15:25] VITALS: BP 170/93
[2017-09-04] MEDS ORDERED: PROMETHAZINE HCL/CODEINE 6.25-10MG/5ML SYRUP UDCUP PO PRN (15:45)
[2017-09-04] MEDS: SACUBITRIL/VALSARTAN 24-26 MG TABLET PO SCH ×2 (17:02→23:37)
[2017-09-04] MEDS: HydrALAZINE HCL 25 MG TABLET PO SCH ×3 (17:02→23:36)
[2017-09-04] MEDS: ALLOPURINOL 100 MG TABLET PO SCH (17:03)
[2017-09-04] MEDS ORDERED: DEXTROSE 50%-WATER 25 GM/50 ML SYRINGE IVP PRN (18:00)
[2017-09-04] MEDS: INSULIN ASPART 100 UNITS/ML SQ PRN (18:07)
[2017-09-04 19:16] LABS: SODIUM,URINE RANDOM 27 mmol/l (20-110)
[2017-09-04 19:27] LABS: OSMOLALITY,URINE 392 mOS/kg (50-1200)
[2017-09-04 19:31] VITALS: BP 125/59
[2017-09-04] MEDS: OXYGEN THERAPY IH SCH (20:56)
[2017-09-04] MEDS: FUROSEMIDE 40 MG/4 ML VIAL IVP SCH (20:57)
[2017-09-04 23:33] VITALS: BP 122/60
[2017-09-04] MEDS: SIMVASTATIN 20 MG TABLET PO SCH (23:36)
[2017-09-04] MEDS: CARVEDILOL 25 MG TABLET PO SCH (23:38)
[2017-09-05] VITALS (13 sets, daily range): BP systolic 72–142; BP diastolic 38–81
[2017-09-05 06:43] LABS: GLUCOMETER DEV NAME(LOC) 5S 2N; GLUCOSE,POINT OF CARE 73 MG/DL (70-110)
[2017-09-05 06:43] LABS: GLUCOMETER DEV NAME(LOC) 5S 2N; GLUCOSE,POINT OF CARE 277 MG/DL (70-110)
[2017-09-05 06:56] LABS: BASOPHILS % (AUTO) 1.1 % (0.0-2.0); EOSINOPHILS % (AUTO) 4.2 % (1.0-6.0); HEMATOCRIT 43.2 % (41-53); HEMOGLOBIN 14.2 g/dL (13.5-17.5); LYMPHOCYTES # (AUTO) 0.7 K/uL (1.0-4.8); LYMPHOCYTES % (AUTO) 10.1 % (22.0-44.0); MEAN CORPUSCULAR HEMOGLOBIN 32.2 pg (26.0-34.0); MEAN CORPUSCULAR VOLUME 98 fL (80-100); MONOCYTES # (AUTO) 0.6 K/uL (0.1-1.0); MONOCYTES % (AUTO) 8.1 % (2.0-9.0); NEUTROPHILS # (AUTO) 5.5 K/uL (1.8-7.7); NEUTROPHILS % (AUTO) 76.5 % (40.0-70.0); PLATELET COUNT (AUTO) 188 K/uL (150-450); RED BLOOD CELL COUNT(AUTO) 4.43 MIL/uL (4.50-5.90); RED CELL DISTRIBUTION WIDTH 15.5 % (11.5-14.5)
[2017-09-05 08:29] LABS: ALBUMIN 3.1 g/dL (3.4-5.0); BILIRUBIN,TOTAL 0.5 mg/dL (0.1-1.0); CALCIUM, TOTAL 8.7 mg/dL (8.8-10.5); CHOL/HDL RATIO 2.5 (4.2-7.3); CREATININE 1.67 mg/dL (0.60-1.30); PHOSPHORUS 4.6 mg/dL (2.5-4.9); THYROID STIMULATING HORMONE 1.24 uIU/mL (0.36-3.74); TOTAL PROTEIN, SERUM 6.1 g/dL (6.4-8.2)
[2017-09-05] MEDS ORDERED: FUROSEMIDE 40 MG TABLET PO SCH (09:00)
[2017-09-05] MEDS: FINASTERIDE 5 MG TABLET PO SCH (09:03)
[2017-09-05] MEDS: FUROSEMIDE 40 MG/4 ML VIAL IVP SCH ×2 (09:03→20:29)
[2017-09-05] MEDS: OXYGEN THERAPY IH SCH ×2 (09:03→20:29)
[2017-09-05] MEDS: ASPIRIN 81 MG EC TABLET PO SCH (09:03)
[2017-09-05] MEDS: PIOGLITAZONE HCL 45 MG TABLET PO SCH (09:04)
[2017-09-05] MEDS: CARVEDILOL 25 MG TABLET PO SCH ×2 (09:04→22:28)
[2017-09-05] MEDS: SACUBITRIL/VALSARTAN 24-26 MG TABLET PO SCH ×2 (09:05→23:03)
[2017-09-05] MEDS: INSULIN ASPART 100 UNITS/ML SQ PRN ×3 (11:48→20:36)
[2017-09-05] MEDS: HydrALAZINE HCL 25 MG TABLET PO SCH ×2 (16:00→23:03)
[2017-09-05] MEDS: ALLOPURINOL 100 MG TABLET PO SCH (17:04)
[2017-09-05] MEDS: SIMVASTATIN 20 MG TABLET PO SCH (20:29)
[2017-09-05] MEDS ORDERED: SODIUM CHLORIDE 0.9% 250 ML IV ONE ×2 (23:12→23:30)
[2017-09-05 23:42] LABS: GLUCOMETER DEV NAME(LOC) 5S 2N; GLUCOSE,POINT OF CARE 275 MG/DL (70-110)
[2017-09-05 23:42] LABS: GLUCOMETER DEV NAME(LOC) 5S 2N; GLUCOSE,POINT OF CARE 191 MG/DL (70-110)
[2017-09-06] VITALS (13 sets, daily range): BP systolic 77–144; BP diastolic 37–70
[2017-09-06 06:45] LABS: CALCIUM, TOTAL 8.7 mg/dL (8.8-10.5); CHOL/HDL RATIO 2.5 (4.2-7.3); CREATININE 1.89 mg/dL (0.60-1.30); PHOSPHORUS 5.3 mg/dL (2.5-4.9); POTASSIUM 3.9 mmol/L (3.5-5.1)
[2017-09-06 07:54] LABS: GLUCOMETER DEV NAME(LOC) 5S 1L; GLUCOSE,POINT OF CARE 134 MG/DL (70-110)
[2017-09-06 07:54] LABS: GLUCOMETER DEV NAME(LOC) 5S 1L; GLUCOSE,POINT OF CARE 216 MG/DL (70-110)
[2017-09-06 07:54] LABS: GLUCOMETER DEV NAME(LOC) 5S 1L; GLUCOSE,POINT OF CARE 131 MG/DL (70-110)
[2017-09-06 07:58] LABS: GLUCOMETER DEV NAME(LOC) 5S 1L; GLUCOSE,POINT OF CARE 38 MG/DL (70-110)
[2017-09-06 07:58] LABS: GLUCOMETER DEV NAME(LOC) 5S 1L; GLUCOSE,POINT OF CARE 172 MG/DL (70-110)
[2017-09-06] MEDS: OXYGEN THERAPY IH SCH ×2 (08:58→20:00)
[2017-09-06] MEDS: FUROSEMIDE 40 MG/4 ML VIAL IVP SCH (08:58)
[2017-09-06] MEDS: ASPIRIN 81 MG EC TABLET PO SCH (08:59)
[2017-09-06] MEDS: FINASTERIDE 5 MG TABLET PO SCH (08:59)
[2017-09-06] MEDS: HydrALAZINE HCL 25 MG TABLET PO SCH ×3 (08:59→21:28)
[2017-09-06] MEDS: PIOGLITAZONE HCL 45 MG TABLET PO SCH (08:59)
[2017-09-06] MEDS: CARVEDILOL 25 MG TABLET PO SCH ×2 (09:00→21:28)
[2017-09-06] MEDS: SACUBITRIL/VALSARTAN 24-26 MG TABLET PO SCH ×2 (09:00→21:28)
[2017-09-06 11:38] LABS: GLUCOMETER DEV NAME(LOC) 5S 2N; GLUCOSE,POINT OF CARE 157 MG/DL (70-110)
[2017-09-06] MEDS: INSULIN ASPART 100 UNITS/ML SQ PRN ×3 (12:24→22:16)
[2017-09-06] MEDS: ALLOPURINOL 100 MG TABLET PO SCH (17:59)
[2017-09-06 18:18] LABS: GLUCOMETER DEV NAME(LOC) 5S 2N; GLUCOSE,POINT OF CARE 193 MG/DL (70-110)
[2017-09-06] MEDS: SIMVASTATIN 20 MG TABLET PO SCH (21:28)
[2017-09-07] VITALS (8 sets, daily range): BP systolic 105–147; BP diastolic 56–79
[2017-09-07 05:15] LABS: CALCIUM, TOTAL 8.7 mg/dL (8.8-10.5); CREATININE 1.99 mg/dL (0.60-1.30); MAGNESIUM 1.9 mg/dL (1.80-2.40); PHOSPHORUS 3.7 mg/dL (2.5-4.9); POTASSIUM 4.8 mmol/L (3.5-5.1)
[2017-09-07] MEDS: INSULIN ASPART 100 UNITS/ML SQ PRN ×4 (06:26→21:56)
[2017-09-07] MEDS: FINASTERIDE 5 MG TABLET PO SCH (08:36)
[2017-09-07] MEDS: OXYGEN THERAPY IH SCH ×2 (08:36→20:07)
[2017-09-07] MEDS: ASPIRIN 81 MG EC TABLET PO SCH (08:37)
[2017-09-07] MEDS: SACUBITRIL/VALSARTAN 24-26 MG TABLET PO SCH ×2 (08:37→20:06)
[2017-09-07] MEDS: HydrALAZINE HCL 25 MG TABLET PO SCH ×3 (08:37→21:56)
[2017-09-07] MEDS: PIOGLITAZONE HCL 45 MG TABLET PO SCH (08:37)
[2017-09-07] MEDS: CARVEDILOL 25 MG TABLET PO SCH ×2 (08:37→20:06)
[2017-09-07] MEDS: ALLOPURINOL 100 MG TABLET PO SCH (16:19)
[2017-09-07] MEDS: SIMVASTATIN 20 MG TABLET PO SCH (20:06)
[2017-09-08 04:35] VITALS: BP 143/68
[2017-09-08] MEDS: INSULIN ASPART 100 UNITS/ML SQ PRN (06:31)
[2017-09-08 07:31] LABS: CALCIUM, TOTAL 9.2 mg/dL (8.8-10.5); CREATININE 1.76 mg/dL (0.60-1.30); MAGNESIUM 2.2 mg/dL (1.80-2.40); POTASSIUM 4.4 mmol/L (3.5-5.1)
[2017-09-08 07:35] VITALS: BP 118/68
[2017-09-08] MEDS ORDERED: SACU1TAB PO (07:42)
[2017-09-08] MEDS: PIOGLITAZONE HCL 45 MG TABLET PO SCH (08:39)
[2017-09-08] MEDS: OXYGEN THERAPY IH SCH (08:39)
[2017-09-08] MEDS: FINASTERIDE 5 MG TABLET PO SCH (08:39)
[2017-09-08] MEDS: SACUBITRIL/VALSARTAN 24-26 MG TABLET PO SCH (08:39)
[2017-09-08] MEDS: CARVEDILOL 25 MG TABLET PO SCH (08:39)
[2017-09-08] MEDS: ASPIRIN 81 MG EC TABLET PO SCH (08:39)
[2017-09-08] MEDS: HydrALAZINE HCL 25 MG TABLET PO SCH (08:39)
[2017-09-08 17:33] LABS: GLUCOMETER DEV NAME(LOC) 5S 1L; GLUCOSE,POINT OF CARE 252 MG/DL (70-110)
[2017-09-09 18:57] LABS: GLUCOMETER DEV NAME(LOC) 5S 2N; GLUCOSE,POINT OF CARE 164 MG/DL (70-110)
[2017-09-09 18:58] LABS: GLUCOMETER DEV NAME(LOC) 5S 2N; GLUCOSE,POINT OF CARE 190 MG/DL (70-110)
[2017-09-10 01:18] LABS: GLUCOMETER DEV NAME(LOC) 5N 1M; GLUCOSE,POINT OF CARE 175 MG/DL (70-110)
[2017-09-10 01:18] LABS: GLUCOMETER DEV NAME(LOC) 5N 1M; GLUCOSE,POINT OF CARE 169 MG/DL (70-110)
[2017-09-10 01:18] LABS: GLUCOMETER DEV NAME(LOC) 5N 1M; GLUCOSE,POINT OF CARE 271 MG/DL (70-110)
[2017-09-10 01:18] LABS: GLUCOMETER DEV NAME(LOC) 5N 1M; GLUCOSE,POINT OF CARE 177 MG/DL (70-110)
== END 2017-09-08 09:50 | disposition home health service (06) | DRG 280 ==
LOC: EMS 15:31 → 5S 09-04 04:46
PROVIDERS: ADMIT Family Medicine; ATTEND Family Medicine
PROC: 3E0234Z Introduction of Serum, Toxoid and Vaccine into Muscle, Percutaneous Approach (ICD-10-PCS; principal; 2017-09-05)
DX: I13.0 Hypertensive heart and chronic kidney disease with heart failure and stage 1 through stage 4 chronic kidney disease, or unspecified chronic kidney disease (principal); I21.4 Non-ST elevation (NSTEMI) myocardial infarction; I50.23 Acute on chronic systolic (congestive) heart failure; N17.9 Acute kidney failure, unspecified; I95.9 Hypotension, unspecified; E87.3 Alkalosis; E11.22 Type 2 diabetes mellitus with diabetic chronic kidney disease; E11.65 Type 2 diabetes mellitus with hyperglycemia; E87.1 Hypo-osmolality and hyponatremia; G20 Parkinson's disease; F03.90 Unspecified dementia, unspecified severity, without behavioral disturbance, psychotic disturbance, mood disturbance, and anxiety; N18.3 Chronic kidney disease, stage 3 (moderate); M10.9 Gout, unspecified; E78.5 Hyperlipidemia, unspecified; E55.9 Vitamin D deficiency, unspecified; E78.00 Pure hypercholesterolemia, unspecified; I48.91 Unspecified atrial fibrillation; Z79.82 Long term (current) use of aspirin; Z23 Encounter for immunization; Z79.899 Other long term (current) drug therapy; Z95.0 Presence of cardiac pacemaker; Z90.49 Acquired absence of other specified parts of digestive tract
CPT/HCPCS: 82533; 82962; 83735; 83930; 83935; 84100; 84300; 84443; 87081; 90471; 93005; 93306; 94640; 96372; 96374; 97163; 97166; 99285; J1815; J1940; J7050

== ENCOUNTER 2017-11-25 22:32 | Emergency (ER) | payer OTHER ==
[~2017-11-25] VITALS: Ht 162.6 cm; Wt 83.6 kg
[~2017-11-25 22:32] MED LIST changes: -FURO40 PO; +SACU1TAB PO
[2017-11-25 22:47] LABS: GLUCOSE,POINT OF CARE 170 MG/DL (70-110)
[2017-11-25] MEDS ORDERED: FURO40 PO (22:49)
[2017-11-25 23:42] LABS: BASOPHILS % (AUTO) 1.2 % (0.0-2.0); HEMATOCRIT 36.3 % (41-53); HEMOGLOBIN 12.1 g/dL (13.5-17.5); LYMPHOCYTES # (AUTO) 1.2 K/uL (1.0-4.8); LYMPHOCYTES % (AUTO) 21.3 % (22.0-44.0); MEAN CORPUSCULAR HEMOGLOBIN 31.7 pg (26.0-34.0); MEAN CORPUSCULAR HGB CONC 33.3 G/dL (31.0-37.0); MEAN CORPUSCULAR VOLUME 95 fL (80-100); MONOCYTES # (AUTO) 0.6 K/uL (0.1-1.0); MONOCYTES % (AUTO) 10.1 % (2.0-9.0); NEUTROPHILS # (AUTO) 3.5 K/uL (1.8-7.7); NEUTROPHILS % (AUTO) 62.4 % (40.0-70.0); PLATELET COUNT (AUTO) 175 K/uL (150-450); RED BLOOD CELL COUNT(AUTO) 3.81 MIL/uL (4.50-5.90); RED CELL DISTRIBUTION WIDTH 15.7 % (11.5-14.5)
[2017-11-25 23:53] LABS: PROTHROMBIN TIME 10.7 SEC (9.4-11.6)
[2017-11-26 00:03] LABS: B-TYPE NATRIURETIC PEPTIDE 680 pg/mL (0-100)
[2017-11-26 00:06] LABS: ANION GAP 5 mmol/L (8-16); CARBON DIOXIDE 33 mmol/L (22-29); CHLORIDE 100 mmol/L (98-107); CREATININE 1.63 mg/dL (0.60-1.30); GLOMERULAR FILTR. RATE CALC 41 mL/min (>60); GLUCOSE,RANDOM 184 mg/dL (70-110); POTASSIUM 4.2 mmol/L (3.5-5.1); SODIUM SERUM 138 mmol/L (136-145)
[2017-11-26 00:07] LABS: ALANINE AMINOTRANSFERASE 42 U/L (12-78); ALBUMIN 3.1 g/dL (3.4-5.0); ALKALINE PHOSPHATASE 83 U/L (46-116); ASPARTATE AMINOTRANSFERASE 74 U/L (15-37); BILIRUBIN,TOTAL 0.4 mg/dL (0.1-1.0); CALCIUM, TOTAL 8.6 mg/dL (8.8-10.5); CREATINE KINASE, TOTAL 102 U/L (39-308); TOTAL PROTEIN, SERUM 6.3 g/dL (6.4-8.2)
[2017-11-26 00:18] LABS: UREA NITROGEN, BLOOD 29 mg/dL (7-18)
[2017-11-26] MEDS ORDERED: NITROGLYCERIN 2% (1 GM=INCH) PACKET TP ONE (01:15)
[2017-11-26] MEDS ORDERED: BUMETANIDE 0.25 MG/ML 4 ML VIAL IVP ONE (01:15)
[2017-11-26 03:12] VITALS: BP 143/68
== END 2017-11-26 03:13 | disposition home or self-care (01) ==
LOC: EMS 22:34
DX: I11.0 Hypertensive heart disease with heart failure (principal); I50.9 Heart failure, unspecified; E78.00 Pure hypercholesterolemia, unspecified; E11.9 Type 2 diabetes mellitus without complications
CPT/HCPCS: 71045; 80053; 82550; 82553; 82962; 83880; 84484; 85025; 85610; 85730; 93005; 96374; 99285; J3490

== ENCOUNTER 2018-03-12 21:33 | Inpatient (IN) | payer OTHER ==
[~2018-03-12] VITALS: Ht 162.6 cm; Wt 77.4 kg
[~2018-03-12 21:33] MED LIST changes: +AMLO-511 PO; +ENAL2.5 PO; +FURO40 PO; -HYDR25TA84 PO; +IPRA4AER IH; -SACU1TAB PO; +TAMS0.4C32 PO
[2018-03-12] MEDS ORDERED: ACETAMINOPHEN 325 MG TABLET ONE (21:39)
[2018-03-12] MEDS ORDERED: ACETAMINOPHEN 325 MG TABLET PO ONE (21:45)
[2018-03-12 21:53] LABS: GLUCOSE,POINT OF CARE 192 MG/DL (70-110)
[2018-03-12] MEDS ORDERED: 0.9% SODIUM CHLORIDE 10 ML SYRINGE IVP PRN (22:30)
[2018-03-12 22:59] LABS: BASOPHILS % (AUTO) 0.2 % (0.0-2.0); EOSINOPHILS % (AUTO) 0.1 % (1.0-6.0); HEMATOCRIT 32.4 % (41-53); LYMPHOCYTES # (AUTO) 0.3 K/uL (1.0-4.8); LYMPHOCYTES % (AUTO) 1.9 % (22.0-44.0); MEAN CORPUSCULAR HEMOGLOBIN 31.3 pg (26.0-34.0); MEAN CORPUSCULAR VOLUME 92 fL (80-100); MONOCYTES # (AUTO) 1.1 K/uL (0.1-1.0); MONOCYTES % (AUTO) 6.9 % (2.0-9.0); NEUTROPHILS # (AUTO) 14.3 K/uL (1.8-7.7); PLATELET COUNT (AUTO) 247 K/uL (150-450); RED BLOOD CELL COUNT(AUTO) 3.51 MIL/uL (4.50-5.90); RED CELL DISTRIBUTION WIDTH 15.1 % (11.5-14.5)
[2018-03-12 23:01] LABS: NEUTROPHILS % (AUTO) 90.9 % (40.0-70.0)
[2018-03-12 23:10] LABS: CALCIUM, TOTAL 8.4 mg/dL (8.8-10.5); CREATININE 2.37 mg/dL (0.60-1.30); INR 1.1 (0.9-1.1); POTASSIUM 3.3 mmol/L (3.5-5.1); PROTHROMBIN TIME 11.6 SEC (9.4-11.6)
[2018-03-12 23:15] LABS: ALBUMIN 2.7 g/dL (3.4-5.0); BILIRUBIN,TOTAL 0.6 mg/dL (0.1-1.0); TOTAL PROTEIN, SERUM 6.4 g/dL (6.4-8.2)
[2018-03-12 23:22] LABS: LACTIC ACID 1.2 mmol/L (0.4-2.0)
[2018-03-12 23:40] LABS: APPEARANCE,URINE CLOUDY (CLEAR); BILIRUBIN,URINE NEGATIVE (NEGATIVE); GLUCOSE, URINE (UA) NEGATIVE (NEGATIVE); KETONES,URINE NEGATIVE (NEGATIVE); LEUKOCYTE ESTERASE ,URINE SMALL (NEGATIVE); NITRATE,URINE NEGATIVE (NEGATIVE); OCCULT BLOOD,URINE NEGATIVE (NEGATIVE); PROTEIN,URINE POS 1+ (NEGATIVE); UROBILINOGEN,URINE 0.2 mg/dL (<=1.0)
[2018-03-12] MEDS ORDERED: SODIUM CHLORIDE 0.9% 1,000 ML IV ONE (23:45)
[2018-03-12] MEDS ORDERED: CefTRIAXone SODIUM 1 GM in DEXTROSE 5%-WATER 10 ML IV ONE (23:45)
[2018-03-13] VITALS (7 sets, daily range): BP systolic 104–136; BP diastolic 50–63
[2018-03-13] MEDS ORDERED: AZITHROMYCIN 500 MG/NS 250 ML IV ONE (00:15)
[2018-03-13] MEDS ORDERED: ONDANSETRON HCL 4 MG/2 ML VIAL IVP PRN (00:15)
[2018-03-13] MEDS ORDERED: ACETAMINOPHEN 325 MG TABLET PO PRN ×2 (00:15→09:45)
[2018-03-13 00:29] LABS: BACTERIA,URINE Few /HPF (None Seen); RBC,URINE 0-2 /HPF (0-2)
[2018-03-13 00:30] LABS: SQUAMOUS EPITHELIAL CELL,UR Rare /LPF (None Seen)
[2018-03-13] MEDS ORDERED: ALBUTEROL SULFATE 2.5 MG/0.5 ML NEB SOLUTION NEB PRN (09:45)
[2018-03-13] MEDS ORDERED: BISACODYL 10 MG RECTAL RECTAL SUPPOSITORY PR PRN (09:45)
[2018-03-13] MEDS ORDERED: POTASSIUM CHLORIDE 20 MEQ ER TABLET PO ONE (10:00)
[2018-03-13] MEDS ORDERED: SODIUM CHLORIDE 0.9% 100 ML ONE (18:01)
[2018-03-13] MEDS: PIPERACILLIN SODIUM/TAZOBACTAM 2.25 GM in DEXTROSE 5%-WATER 50 ML IV SCH (18:22)
[2018-03-13] MEDS: HEPARIN SODIUM,PORCINE 5,000 UNITS/ML VIAL SQ SCH (20:59)
[2018-03-13] MEDS: FUROSEMIDE 20 MG TABLET PO SCH (20:59)
[2018-03-13] MEDS: DOCUSATE SODIUM 100 MG CAPSULE PO SCH (20:59)
[2018-03-13] MEDS: CARVEDILOL 12.5 MG TABLET PO SCH (20:59)
[2018-03-13] MEDS: ATORVASTATIN CALCIUM 20 MG TABLET PO SCH (20:59)
[2018-03-13] MEDS: TAMSULOSIN HCL 0.4 MG CAPSULE PO SCH (20:59)
[2018-03-14] MEDS ORDERED: CefTRIAXone SODIUM 1 GM in DEXTROSE 5%-WATER 10 ML IV SCH ×2
[2018-03-14] MEDS: AZITHROMYCIN 500 MG/NS 250 ML IV SCH ×3 (00:26→23:00)
[2018-03-14] MEDS: PIPERACILLIN SODIUM/TAZOBACTAM 2.25 GM in DEXTROSE 5%-WATER 50 ML IV SCH ×5 (01:20→23:49)
[2018-03-14 04:29] VITALS: BP 109/55
[2018-03-14 06:48] LABS: BASOPHILS % (AUTO) 0.7 % (0.0-2.0); EOSINOPHILS % (AUTO) 1.6 % (1.0-6.0); HEMATOCRIT 33.6 % (41-53); HEMOGLOBIN 11.3 g/dL (13.5-17.5); LYMPHOCYTES % (AUTO) 6.9 % (22.0-44.0); MEAN CORPUSCULAR HEMOGLOBIN 31.4 pg (26.0-34.0); MEAN CORPUSCULAR HGB CONC 33.7 G/dL (31.0-37.0); MEAN CORPUSCULAR VOLUME 93 fL (80-100); MONOCYTES # (AUTO) 1.1 K/uL (0.1-1.0); MONOCYTES % (AUTO) 7.6 % (2.0-9.0); NEUTROPHILS # (AUTO) 12.2 K/uL (1.8-7.7); NEUTROPHILS % (AUTO) 83.2 % (40.0-70.0); PLATELET COUNT (AUTO) 267 K/uL (150-450); RED BLOOD CELL COUNT(AUTO) 3.61 MIL/uL (4.50-5.90); RED CELL DISTRIBUTION WIDTH 15.1 % (11.5-14.5)
[2018-03-14 07:07] LABS: CALCIUM, TOTAL 8.3 mg/dL (8.8-10.5); CREATININE 2.51 mg/dL (0.60-1.30)
[2018-03-14 07:37] VITALS: BP 117/51
[2018-03-14] MEDS: HEPARIN SODIUM,PORCINE 5,000 UNITS/ML VIAL SQ SCH ×2 (09:56→21:03)
[2018-03-14] MEDS: PANTOPRAZOLE SODIUM 40 MG DR TABLET PO SCH (09:56)
[2018-03-14] MEDS: ASPIRIN 81 MG CHEWABLE TABLET PO SCH (09:57)
[2018-03-14] MEDS: CARVEDILOL 12.5 MG TABLET PO SCH ×2 (09:58→21:02)
[2018-03-14] MEDS: FUROSEMIDE 20 MG TABLET PO SCH ×2 (09:58→21:02)
[2018-03-14] MEDS: DOCUSATE SODIUM 100 MG CAPSULE PO SCH ×2 (09:59→21:02)
[2018-03-14 11:24] VITALS: BP 98/58
[2018-03-14 15:25] VITALS: BP 116/58
[2018-03-14 19:27] VITALS: BP 114/59
[2018-03-14] MEDS: TAMSULOSIN HCL 0.4 MG CAPSULE PO SCH (21:02)
[2018-03-14] MEDS: ATORVASTATIN CALCIUM 20 MG TABLET PO SCH (21:03)
[2018-03-15] VITALS (7 sets, daily range): BP systolic 112–143; BP diastolic 58–66
[2018-03-15] MEDS: PIPERACILLIN SODIUM/TAZOBACTAM 2.25 GM in DEXTROSE 5%-WATER 50 ML IV SCH ×3 (05:40→18:01)
[2018-03-15 06:42] LABS: EOSINOPHILS % (AUTO) 2.7 % (1.0-6.0); HEMATOCRIT 36.8 % (41-53); HEMOGLOBIN 12.5 g/dL (13.5-17.5); LYMPHOCYTES # (AUTO) 0.8 K/uL (1.0-4.8); LYMPHOCYTES % (AUTO) 9.3 % (22.0-44.0); MEAN CORPUSCULAR HEMOGLOBIN 31.6 pg (26.0-34.0); MEAN CORPUSCULAR VOLUME 93 fL (80-100); MONOCYTES # (AUTO) 0.7 K/uL (0.1-1.0); MONOCYTES % (AUTO) 8.2 % (2.0-9.0); NEUTROPHILS % (AUTO) 78.8 % (40.0-70.0); PLATELET COUNT (AUTO) 294 K/uL (150-450); RED BLOOD CELL COUNT(AUTO) 3.95 MIL/uL (4.50-5.90); RED CELL DISTRIBUTION WIDTH 15.5 % (11.5-14.5)
[2018-03-15 06:58] LABS: CALCIUM, TOTAL 8.7 mg/dL (8.8-10.5); CREATININE 2.87 mg/dL (0.60-1.30); POTASSIUM 4.1 mmol/L (3.5-5.1)
[2018-03-15] MEDS: PANTOPRAZOLE SODIUM 40 MG DR TABLET PO SCH (08:13)
[2018-03-15] MEDS: FUROSEMIDE 20 MG TABLET PO SCH ×2 (08:14→20:47)
[2018-03-15] MEDS: CARVEDILOL 12.5 MG TABLET PO SCH ×2 (08:14→20:47)
[2018-03-15] MEDS: DOCUSATE SODIUM 100 MG CAPSULE PO SCH ×2 (08:14→20:46)
[2018-03-15] MEDS: HEPARIN SODIUM,PORCINE 5,000 UNITS/ML VIAL SQ SCH ×2 (08:14→20:47)
[2018-03-15] MEDS: ASPIRIN 81 MG CHEWABLE TABLET PO SCH (08:17)
[2018-03-15] MEDS ORDERED: SODIUM CHLORIDE 0.9% 100 ML ONE (10:33)
[2018-03-15] MEDS ORDERED: AZITHROMYCIN 500 MG/NS 250 ML IV SCH (11:00)
[2018-03-15] MEDS: ATORVASTATIN CALCIUM 20 MG TABLET PO SCH (20:47)
[2018-03-15] MEDS: TAMSULOSIN HCL 0.4 MG CAPSULE PO SCH (20:47)
[2018-03-16 04:49] VITALS: BP 122/59
[2018-03-16 06:27] LABS: CREATININE 2.98 mg/dL (0.60-1.30); POTASSIUM 3.8 mmol/L (3.5-5.1)
[2018-03-16] MEDS: ASPIRIN 81 MG CHEWABLE TABLET PO SCH (09:01)
[2018-03-16] MEDS: DOCUSATE SODIUM 100 MG CAPSULE PO SCH ×2 (09:01→20:48)
[2018-03-16] MEDS: CARVEDILOL 12.5 MG TABLET PO SCH ×2 (09:01→20:48)
[2018-03-16] MEDS: PANTOPRAZOLE SODIUM 40 MG DR TABLET PO SCH (09:01)
[2018-03-16] MEDS: FUROSEMIDE 20 MG TABLET PO SCH ×2 (09:01→20:48)
[2018-03-16] MEDS: HEPARIN SODIUM,PORCINE 5,000 UNITS/ML VIAL SQ SCH ×2 (09:02→20:49)
[2018-03-16 20:16] VITALS: BP 139/83
[2018-03-16] MEDS: ATORVASTATIN CALCIUM 20 MG TABLET PO SCH (20:48)
[2018-03-16] MEDS: TAMSULOSIN HCL 0.4 MG CAPSULE PO SCH (20:48)
[2018-03-16 23:46] VITALS: BP 142/66
[2018-03-16] MEDS: CefTRIAXone SODIUM 1 GM in DEXTROSE 5%-WATER 10 ML IV SCH ×3 (23:49)
[2018-03-17 04:54] VITALS: BP 148/69
[2018-03-17 06:26] LABS: CALCIUM, TOTAL 9.2 mg/dL (8.8-10.5); CREATININE 2.54 mg/dL (0.60-1.30); POTASSIUM 3.5 mmol/L (3.5-5.1)
[2018-03-17 07:18] VITALS: BP 161/82
[2018-03-17] MEDS: DOCUSATE SODIUM 100 MG CAPSULE PO SCH (08:09)
[2018-03-17] MEDS: ASPIRIN 81 MG CHEWABLE TABLET PO SCH (08:09)
[2018-03-17] MEDS: FUROSEMIDE 20 MG TABLET PO SCH (08:09)
[2018-03-17] MEDS: PANTOPRAZOLE SODIUM 40 MG DR TABLET PO SCH (08:09)
[2018-03-17] MEDS: CARVEDILOL 12.5 MG TABLET PO SCH (08:10)
[2018-03-17] MEDS: HEPARIN SODIUM,PORCINE 5,000 UNITS/ML VIAL SQ SCH (08:10)
[2018-03-17 11:19] VITALS: BP 132/70
== END 2018-03-17 13:00 | disposition home or self-care (01) | DRG 871 ==
LOC: EMS 21:35 → 5S 03-13 00:46 → 5N 03-13 04:37
PROVIDERS: ADMIT Internal Medicine; ATTEND Internal Medicine
DX: A41.9 Sepsis, unspecified organism (principal); J18.9 Pneumonia, unspecified organism; I50.22 Chronic systolic (congestive) heart failure; I13.0 Hypertensive heart and chronic kidney disease with heart failure and stage 1 through stage 4 chronic kidney disease, or unspecified chronic kidney disease; N17.9 Acute kidney failure, unspecified; N39.0 Urinary tract infection, site not specified; N18.3 Chronic kidney disease, stage 3 (moderate); M10.9 Gout, unspecified; I50.9 Heart failure, unspecified; E11.22 Type 2 diabetes mellitus with diabetic chronic kidney disease; E78.00 Pure hypercholesterolemia, unspecified; B96.20 Unspecified Escherichia coli [E. coli] as the cause of diseases classified elsewhere; F03.90 Unspecified dementia, unspecified severity, without behavioral disturbance, psychotic disturbance, mood disturbance, and anxiety; I25.10 Atherosclerotic heart disease of native coronary artery without angina pectoris; N40.0 Benign prostatic hyperplasia without lower urinary tract symptoms; Z82.49 Family history of ischemic heart disease and other diseases of the circulatory system; Z83.3 Family history of diabetes mellitus; Z95.1 Presence of aortocoronary bypass graft; Z79.82 Long term (current) use of aspirin; Z95.0 Presence of cardiac pacemaker; Z79.899 Other long term (current) drug therapy; Z90.49 Acquired absence of other specified parts of digestive tract; Z79.4 Long term (current) use of insulin
CPT/HCPCS: 74176; 76770; 83605; 87040; 87086; 93005; 96365; 96366; 96368; 97162; 97530; 99285; J0456; J0696; J1644; J2543; J7050; J7060

== ENCOUNTER 2018-07-09 22:20 | Inpatient (IN) | payer OTHER ==
[~2018-07-09] VITALS: Ht 154.9 cm; Wt 76.5 kg
[~2018-07-09 22:20] MED LIST changes: -AMLO-511 PO; +AMLO2.5T3 PO; -CARV25 PO; +CARV3 PO; +HYDR25TA84 PO; -IPRA4AER IH; +PYRI50 PO
[2018-07-09 22:58] LABS: GLUCOSE,POINT OF CARE 167 MG/DL (70-110)
[2018-07-09] MEDS ORDERED: FUROSEMIDE 40 MG/4 ML VIAL IVP ONE (23:15)
[2018-07-09 23:23] LABS: EOSINOPHILS % (AUTO) 0.8 % (1.0-6.0); HEMOGLOBIN 11.3 g/dL (13.5-17.5); LYMPHOCYTES # (AUTO) 0.7 K/uL (1.0-4.8); LYMPHOCYTES % (AUTO) 8.5 % (22.0-44.0); MEAN CORPUSCULAR HEMOGLOBIN 32.4 pg (26.0-34.0); MEAN CORPUSCULAR HGB CONC 33.3 G/dL (31.0-37.0); MEAN CORPUSCULAR VOLUME 97 fL (80-100); MONOCYTES # (AUTO) 0.8 K/uL (0.1-1.0); MONOCYTES % (AUTO) 8.9 % (2.0-9.0); NEUTROPHILS # (AUTO) 7.2 K/uL (1.8-7.7); NEUTROPHILS % (AUTO) 80.8 % (40.0-70.0); PLATELET COUNT (AUTO) 168 K/uL (150-450); RED CELL DISTRIBUTION WIDTH 15.3 % (11.5-14.5)
[2018-07-09 23:33] LABS: CALCIUM, TOTAL 8.4 mg/dL (8.8-10.5); CREATININE 1.83 mg/dL (0.60-1.30); POTASSIUM 4.7 mmol/L (3.5-5.1)
[2018-07-09 23:35] LABS: PROTHROMBIN TIME 10.8 SEC (9.4-11.6)
[2018-07-09 23:52] LABS: APPEARANCE,URINE CLEAR (CLEAR); BILIRUBIN,URINE NEGATIVE (NEGATIVE); GLUCOSE, URINE (UA) NEGATIVE (NEGATIVE); KETONES,URINE NEGATIVE (NEGATIVE); LEUKOCYTE ESTERASE ,URINE NEGATIVE (NEGATIVE); NITRATE,URINE NEGATIVE (NEGATIVE); OCCULT BLOOD,URINE NEGATIVE (NEGATIVE); PROTEIN,URINE NEGATIVE (NEGATIVE)
[2018-07-09 23:58] LABS: ALBUMIN 3.3 g/dL (3.4-5.0); TOTAL PROTEIN, SERUM 6.7 g/dL (6.4-8.2)
[2018-07-10 01:23] LABS: GLUCOSE,POINT OF CARE 158 MG/DL (70-110)
[2018-07-10 01:37] LABS: D-DIMER 0.81 mg/L FEU (0.00-0.50)
[2018-07-10 02:40] VITALS: BP 135/69
[2018-07-10 08:04] VITALS: BP 132/63
[2018-07-10] MEDS ORDERED: 0.9% SODIUM CHLORIDE 10 ML SYRINGE IVP PRN (09:30)
[2018-07-10] MEDS ORDERED: ONDANSETRON HCL 4 MG/2 ML VIAL IVP PRN (09:30)
[2018-07-10] MEDS ORDERED: ACETAMINOPHEN 650 MG/20.3 ML SOLUTION UDCUP PO PRN (09:30)
[2018-07-10] MEDS ORDERED: ZOLPIDEM TARTRATE 5 MG TABLET PO PRN (09:30)
[2018-07-10] MEDS ORDERED: OxyCODONE HCL/ACETAMINOPHEN 5-325 MG TABLET PO PRN (09:30)
[2018-07-10] MEDS ORDERED: ENALAPRIL MALEATE 2.5 MG TABLET PO SCH (09:30)
[2018-07-10] MEDS ORDERED: AmLODIPine BESYLATE 2.5 MG TABLET PO SCH (09:30)
[2018-07-10] MEDS ORDERED: FUROSEMIDE 20 MG/2 ML VIAL IVP SCH (09:30)
[2018-07-10] MEDS ORDERED: GLUCAGON,HUMAN RECOMBINANT 1 MG VIAL IM PRN (09:45)
[2018-07-10] MEDS: PYRIDOXINE HCL 50 MG TABLET PO SCH ×2 (10:39→20:47)
[2018-07-10] MEDS: FINASTERIDE 5 MG TABLET PO SCH (10:39)
[2018-07-10] MEDS: ALLOPURINOL 100 MG TABLET PO SCH ×2 (10:39→20:48)
[2018-07-10] MEDS: TAMSULOSIN HCL 0.4 MG CAPSULE PO SCH (10:39)
[2018-07-10] MEDS: ASPIRIN 81 MG CHEWABLE TABLET PO SCH (10:39)
[2018-07-10] MEDS: HEPARIN SODIUM,PORCINE 5,000 UNITS/ML VIAL SQ SCH ×3 (10:39→23:17)
[2018-07-10] MEDS: DOCUSATE SODIUM 100 MG CAPSULE PO SCH ×2 (10:39→20:48)
[2018-07-10] MEDS: FUROSEMIDE 20 MG/2 ML VIAL IVP SCH ×2 (10:40→20:48)
[2018-07-10] MEDS: CARVEDILOL 3.125 MG TABLET PO SCH ×2 (10:40→20:47)
[2018-07-10] MEDS: PANTOPRAZOLE SODIUM 40 MG/VIAL IVP SCH (10:40)
[2018-07-10] MEDS: LOSARTAN POTASSIUM 25 MG TABLET PO SCH ×2 (10:41→20:48)
[2018-07-10 11:19] VITALS: BP 157/75
[2018-07-10] MEDS: INSULIN LISPRO 100 UNITS/ML SQ PRN ×2 (12:15→20:52)
[2018-07-10 16:19] VITALS: BP 132/63
[2018-07-10 17:24] LABS: GLUCOMETER DEV NAME(LOC) 5S 2R; GLUCOSE,POINT OF CARE 106 MG/DL (70-110)
[2018-07-10 19:31] VITALS: BP 138/72
[2018-07-10] MEDS: SIMVASTATIN 20 MG TABLET PO SCH (20:47)
[2018-07-10 22:04] LABS: GLUCOMETER DEV NAME(LOC) 5N 2S; GLUCOSE,POINT OF CARE 117 MG/DL (70-110)
[2018-07-10 23:34] VITALS: BP 115/57
[2018-07-11 04:32] VITALS: BP 132/75
[2018-07-11 06:25] LABS: BASOPHILS % (AUTO) 0.8 % (0.0-2.0); EOSINOPHILS % (AUTO) 1.7 % (1.0-6.0); HEMATOCRIT 35.8 % (41-53); LYMPHOCYTES # (AUTO) 0.9 K/uL (1.0-4.8); LYMPHOCYTES % (AUTO) 13.2 % (22.0-44.0); MEAN CORPUSCULAR HEMOGLOBIN 32.7 pg (26.0-34.0); MEAN CORPUSCULAR HGB CONC 33.6 G/dL (31.0-37.0); MEAN CORPUSCULAR VOLUME 98 fL (80-100); MONOCYTES # (AUTO) 0.7 K/uL (0.1-1.0); MONOCYTES % (AUTO) 10.1 % (2.0-9.0); NEUTROPHILS # (AUTO) 5.2 K/uL (1.8-7.7); NEUTROPHILS % (AUTO) 74.2 % (40.0-70.0); PLATELET COUNT (AUTO) 197 K/uL (150-450); RED BLOOD CELL COUNT(AUTO) 3.67 MIL/uL (4.50-5.90); RED CELL DISTRIBUTION WIDTH 14.9 % (11.5-14.5)
[2018-07-11 06:56] LABS: ALBUMIN 2.9 g/dL (3.4-5.0); BILIRUBIN,TOTAL 0.8 mg/dL (0.1-1.0); CALCIUM, TOTAL 8.5 mg/dL (8.8-10.5); CREATININE 1.96 mg/dL (0.60-1.30); MAGNESIUM 1.9 mg/dL (1.80-2.40); POTASSIUM 3.8 mmol/L (3.5-5.1); TOTAL PROTEIN, SERUM 6.5 g/dL (6.4-8.2)
[2018-07-11 07:44] VITALS: BP 136/63
[2018-07-11] MEDS: PANTOPRAZOLE SODIUM 40 MG/VIAL IVP SCH (10:20)
[2018-07-11] MEDS: HEPARIN SODIUM,PORCINE 5,000 UNITS/ML VIAL SQ SCH ×3 (10:21→23:23)
[2018-07-11] MEDS: LOSARTAN POTASSIUM 25 MG TABLET PO SCH ×2 (10:21→20:09)
[2018-07-11] MEDS: FUROSEMIDE 20 MG/2 ML VIAL IVP SCH ×2 (10:21→20:10)
[2018-07-11] MEDS: TAMSULOSIN HCL 0.4 MG CAPSULE PO SCH (10:21)
[2018-07-11] MEDS: PYRIDOXINE HCL 50 MG TABLET PO SCH ×2 (10:21→20:09)
[2018-07-11] MEDS: ASPIRIN 81 MG CHEWABLE TABLET PO SCH (10:22)
[2018-07-11] MEDS: CARVEDILOL 3.125 MG TABLET PO SCH ×2 (10:22→20:20)
[2018-07-11] MEDS: FINASTERIDE 5 MG TABLET PO SCH (10:22)
[2018-07-11] MEDS: DOCUSATE SODIUM 100 MG CAPSULE PO SCH ×2 (10:22→20:09)
[2018-07-11 11:24] VITALS: BP 143/73
[2018-07-11] MEDS: ALLOPURINOL 100 MG TABLET PO SCH ×2 (12:04→20:10)
[2018-07-11] MEDS: INSULIN LISPRO 100 UNITS/ML SQ PRN ×3 (12:27→20:17)
[2018-07-11 14:34] LABS: GLUCOMETER DEV NAME(LOC) 5S 1N; GLUCOSE,POINT OF CARE 158 MG/DL (70-110)
[2018-07-11 14:34] LABS: GLUCOMETER DEV NAME(LOC) 5S 1N; GLUCOSE,POINT OF CARE 87 MG/DL (70-110)
[2018-07-11 14:34] LABS: GLUCOMETER DEV NAME(LOC) 5S 1N; GLUCOSE,POINT OF CARE 248 MG/DL (70-110)
[2018-07-11 15:12] VITALS: BP 151/77
[2018-07-11 19:40] VITALS: BP 142/64
[2018-07-11] MEDS: SIMVASTATIN 20 MG TABLET PO SCH (20:09)
[2018-07-11 21:23] LABS: GLUCOMETER DEV NAME(LOC) 5N 1P; GLUCOSE,POINT OF CARE 118 MG/DL (70-110)
[2018-07-11 21:23] LABS: GLUCOMETER DEV NAME(LOC) 5N 1P; GLUCOSE,POINT OF CARE 195 MG/DL (70-110)
[2018-07-11 21:23] LABS: GLUCOMETER DEV NAME(LOC) 5N 1P; GLUCOSE,POINT OF CARE 196 MG/DL (70-110)
[2018-07-11 23:11] VITALS: BP 102/50
[2018-07-12 05:32] VITALS: BP 128/61
[2018-07-12 07:25] VITALS: BP 127/69
[2018-07-12] MEDS: HEPARIN SODIUM,PORCINE 5,000 UNITS/ML VIAL SQ SCH (08:14)
[2018-07-12] MEDS: ASPIRIN 81 MG CHEWABLE TABLET PO SCH (08:15)
[2018-07-12] MEDS: TAMSULOSIN HCL 0.4 MG CAPSULE PO SCH (08:15)
[2018-07-12] MEDS: CARVEDILOL 3.125 MG TABLET PO SCH (08:15)
[2018-07-12] MEDS: LOSARTAN POTASSIUM 25 MG TABLET PO SCH (08:15)
[2018-07-12] MEDS: FUROSEMIDE 20 MG/2 ML VIAL IVP SCH (08:15)
[2018-07-12] MEDS: PANTOPRAZOLE SODIUM 40 MG/VIAL IVP SCH (08:15)
[2018-07-12] MEDS: ALLOPURINOL 100 MG TABLET PO SCH (08:15)
[2018-07-12] MEDS: FINASTERIDE 5 MG TABLET PO SCH (08:15)
[2018-07-12] MEDS: DOCUSATE SODIUM 100 MG CAPSULE PO SCH (08:16)
[2018-07-12] MEDS: PYRIDOXINE HCL 50 MG TABLET PO SCH (08:16)
[2018-07-12 11:01] VITALS: BP 118/69
[2018-07-12] MEDS: INSULIN LISPRO 100 UNITS/ML SQ PRN (12:11)
[2018-07-12 13:38] LABS: GLUCOMETER DEV NAME(LOC) 5S 1N; GLUCOSE,POINT OF CARE 106 MG/DL (70-110)
[2018-07-12 13:39] LABS: GLUCOMETER DEV NAME(LOC) 5S 1N; GLUCOSE,POINT OF CARE 144 MG/DL (70-110)
== END 2018-07-12 13:15 | disposition home or self-care (01) | DRG 291 ==
LOC: EMS 22:21 → 5N 07-10 02:11
PROVIDERS: ADMIT Internal Medicine; ATTEND Internal Medicine
DX: I13.0 Hypertensive heart and chronic kidney disease with heart failure and stage 1 through stage 4 chronic kidney disease, or unspecified chronic kidney disease (principal); I50.21 Acute systolic (congestive) heart failure; D64.9 Anemia, unspecified; E11.22 Type 2 diabetes mellitus with diabetic chronic kidney disease; E78.00 Pure hypercholesterolemia, unspecified; F03.90 Unspecified dementia, unspecified severity, without behavioral disturbance, psychotic disturbance, mood disturbance, and anxiety; I25.10 Atherosclerotic heart disease of native coronary artery without angina pectoris; I48.2 Chronic atrial fibrillation; I49.5 Sick sinus syndrome; M10.9 Gout, unspecified; I25.5 Ischemic cardiomyopathy; E78.5 Hyperlipidemia, unspecified; N18.3 Chronic kidney disease, stage 3 (moderate); N40.0 Benign prostatic hyperplasia without lower urinary tract symptoms; Z79.82 Long term (current) use of aspirin; Z82.49 Family history of ischemic heart disease and other diseases of the circulatory system; Z83.3 Family history of diabetes mellitus; Z88.1 Allergy status to other antibiotic agents; Z88.8 Allergy status to other drugs, medicaments and biological substances
CPT/HCPCS: 83735; 85379; 87081; 93005; 93306; 96374; C9113; G0378; J1644; J1940; J2405